=== PATIENT | female | born 1950 | race Caucasian/White ===

== ENCOUNTER → 2023-08-05 06:27 | Day surgery (SDC) | payer MEDICARE, OTHER, SELFPAY ==
[2023-08-05 08:29] LABS: Glucose - Point of Care 135 mg/dl (70-99)
== END ==
LOC: GI 06:27
PROVIDERS: ATTENDING PHYSICIAN Internal Medicine
DX: K62.5 Hemorrhage of anus and rectum (principal); R19.4 Change in bowel habit; K64.9 Unspecified hemorrhoids; K57.30 Diverticulosis of large intestine without perforation or abscess without bleeding; D12.4 Benign neoplasm of descending colon; D12.8 Benign neoplasm of rectum
CPT/HCPCS: 45385; 88305; 82962

== ENCOUNTER → 2024-06-22 13:30 | Outpatient (REF) | payer MEDICARE, OTHER, SELFPAY | LOC: HWWDC 13:30 | PROVIDERS: ATTENDING PHYSICIAN Family Medicine | DX: Z12.31 Encounter for screening mammogram for malignant neoplasm of breast (principal); M54.50 Low back pain, unspecified | CPT/HCPCS: 72110; 77063; 77067 ==